=== PATIENT | female | born 1975 | race Caucasian/White ===

== ENCOUNTER 2016-11-29 17:42 | Emergency (ER) | payer MEDICAID ==
[~2016-11-29] VITALS: Ht 157.5 cm; Wt 58.0 kg
[2016-11-29 18:08] VITALS: BP 134/89
== END 2016-11-29 22:30 | disposition left against medical advice (07) ==
LOC: ER 21:40
DX: H57.11 Ocular pain, right eye (principal); F10.20 Alcohol dependence, uncomplicated; K85.90 Acute pancreatitis without necrosis or infection, unspecified; F15.10 Other stimulant abuse, uncomplicated; F17.200 Nicotine dependence, unspecified, uncomplicated; Z53.21 Procedure and treatment not carried out due to patient leaving prior to being seen by health care provider

== ENCOUNTER 2025-02-18 09:56 | Emergency (ER) | payer BC, MEDICAID, OTHER ==
[~2025-02-18] VITALS: Ht 162.6 cm; Wt 81.0 kg
[2025-02-18 10:31] VITALS: O2SAT 99
[2025-02-18 10:54] LABS: BASOPHILS % 0.4 % (0.0-2.0); EOSINOPHILS % 5.0 % (0.0-5.0); HEMATOCRIT. 40.9 % (36.0-48.0); HEMOGLOBIN. 13.7 g/dL (12.0-16.0); LYMPHOCYTES % 26.5 % (20.0-50.0); MEAN PLATELET VOLUME 8.1 fl (7.4-10.4); MONOCYTES % 8.9 % (2.0-8.0); NEUTROPHILS % 59.2 % (40.0-76.0); PLATELET 259 x1000/uL (130-400); RED BLOOD CELL COUNT 4.67 mill/uL (4.2-5.4); RED CELL DISTRIBUTION WIDTH 13.8 % (11.6-14.6)
[2025-02-18] MEDS: ONDANSETRON 4MG ODT PO ONE (11:07)
[2025-02-18] MEDS: ACETAMINOPHEN 325MG TABLET PO ONE (11:07)
[2025-02-18 11:08] LABS: CREATININE 0.5 mg/dL (0.6-1.0); UREA NITROGEN BLOOD < 5 mg/dL (9-23)
[2025-02-18 11:09] LABS: ETHANOL BLOOD < 10 mg/dL (<10)
[2025-02-18 11:11] LABS: ASPARTATE AMINOTRANSFERASE 51 IU/L (<34); BILIRUBIN DIRECT 0.3 mg/dL (<=3.0); BILIRUBIN TOTAL 1.1 mg/dL (0.1-1.0); PROTEIN TOTAL 7.1 g/dL (6.0-8.3)
[2025-02-18 11:29] LABS: HCG SCREEN NEGATIVE
[2025-02-18] MEDS: POTASSIUM CHLORIDE 20MEQ TABLET SR PO ONE (12:15)
[2025-02-18] MEDS: KETOROLAC 15MG/ML VIAL IM ONE (13:54)
[2025-02-18] MEDS ORDERED: ONDA-239 PO (14:31)
[2025-02-18] MEDS ORDERED: ACET-2708 MT (14:31)
[2025-02-18 15:01] VITALS: BP 135/88; PULSE 75; RESP 15; TEMP 36.7; O2SAT 100
== END 2025-02-18 15:02 | disposition home or self-care (01) ==
LOC: ER 09:56
DX: F10.20 Alcohol dependence, uncomplicated (principal); K86.0 Alcohol-induced chronic pancreatitis; E11.9 Type 2 diabetes mellitus without complications; I10 Essential (primary) hypertension
CPT/HCPCS: 80076; 80048; 80320; 84703; 83690; 85025; 36415; 76705; 93005; 96372; 99285; Q0162; J1885; G0480